=== PATIENT | female | born 1935 | race Caucasian/White ===

== ENCOUNTER 2017-03-30 17:57 | Emergency (ER) | payer MEDICARE ==
--- NOTE | 2017-03-30 19:56 | RAD ---
RIGHT KNEE 4 VIEWS: Date: 03/30/17 HISTORY: Pain. Fall. COMPARISON: None. 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 No joint effusion. No hardware complication. No acute fracture. IMPRESSION: No acute abnormality. POS: [facility]
[2017-03-30] MEDS ORDERED: Bacitracin Zinc 1 Packet ONE (20:51)
== END 2017-03-30 21:50 | disposition home or self-care (01) ==
LOC: ERS 17:57
DX: S81.011A Laceration without foreign body, right knee, initial encounter (principal); G47.00 Insomnia, unspecified; K21.9 Gastro-esophageal reflux disease without esophagitis; E78.5 Hyperlipidemia, unspecified; I10 Essential (primary) hypertension; M19.90 Unspecified osteoarthritis, unspecified site; W07.XXXA Fall from chair, initial encounter
CPT/HCPCS: 12004

== ENCOUNTER 2017-06-27 11:29 | Day surgery (SDC) | payer MEDICARE ==
--- NOTE | 2017-06-27 14:20 | OP ---
DATE OF PROCEDURE: 06/27/2017 TITLE OF PROCEDURE: Esophagogastroduodenoscopy with balloon dilation of esophageal stricture and bio psy. PREPROCEDURE DIAGNOSES: 1. Dysphagia. 2. Regurgitation. 3. Gastroesophageal reflux disease. 4. History of esophageal stricture, dilated one year ago. POSTPROCEDURE DIAGNOSES: 1. Exam to second portion of duodenum. 2. A 5 cm hiatal hernia from 29 cm to 34 cm. 3. Moderate esophageal stricture/stenosis at 29 cm from the incisors. 4. Few benign appearing gastric fundic polyps in the proximal body. 5. No gastric or duodenal ulcers. 6. Grossly normal appearing duodenum. 7. Status post 18 mm TTS balloon dilation of esophageal stricture. PROCEDURE IN DETAIL: Written informed consent was obtained. The patient was brought to the endoscop y suite. Total intravenous anesthesia was provided by Mr. Antonino Rodríguez CRNA. The patient was place d in the left lateral decubitus position. A bite block was inserted into the mouth. A Pentax video diagnostic gastroscope was introduced into the oral cavity and the esophagus was easily intubated. T he gastroscope was advanced under direct visualization to the second portion of the duodenum. Endosc opic findings revealed a 5 cm hiatal hernia located at 29 cm to 34 cm from the incisors. At 29 cm, m oderate luminal narrowing due to an esophageal stricture was encountered. The stricture was traverse d carefully with the endoscope even before dilation and the remainder of the exam was carried out. A few small sessile benign appearing polyps were noted in the proximal gastric body. Based on their s ize of 2-3 mm in diameter and appearance, these were gastric fundic polyps. No biopsies were obtaine d. The remainder of the stomach appeared normal. The retroflexed view of the stomach of the cardia demonstrated the hiatal hernia again. The duodenum from the bulb to the second portion was then exam ined and appeared grossly normal. Using a TTS balloon, the distal esophageal stricture was gradually dilated at all 3 stages of inflation pressure from 15 mm to 16.5 mm to 18 mm. Post-dilation, severa l small mucosal petechiae were noted, but there was no active bleeding or tear. Biopsies were obtain ed at the level of the stricture for histology. The esophagus and stomach were then decompressed as the endoscope was completely removed from the patient. She was transferred to the day stay surgery a [facility] for post-procedure monitoring. There were no immediate complications. RECOMMENDATIONS: 1. Await pathology results. 2. Ask the patient to call me in 1 week for pathology results. 3. Continue Nexium 40 mg daily. 4. For the next 2 to 3 days, would recommend liquids and soft foods only. 5. Follow up in GI clinic in 6 weeks. 6. Repeat EGD with dilation p.r.n.
[2017-06-27] MEDS ORDERED: Propofol 200 MG/20 ML VIAL ONE (16:01)
== END 2017-06-27 14:35 ==
LOC: SDC 11:29
PROVIDERS: ATTEND Internal Medicine Gastroenterology
PROC: 0D758ZZ Dilation of Esophagus, Via Natural or Artificial Opening Endoscopic (ICD-10-PCS; principal; 2017-06-27)
PROC: 0DB58ZX Excision of Esophagus, Via Natural or Artificial Opening Endoscopic, Diagnostic (ICD-10-PCS; 2017-06-27)
DX: R13.14 Dysphagia, pharyngoesophageal phase (principal); K21.0 Gastro-esophageal reflux disease with esophagitis; K31.7 Polyp of stomach and duodenum; K22.2 Esophageal obstruction; K44.9 Diaphragmatic hernia without obstruction or gangrene; M19.90 Unspecified osteoarthritis, unspecified site; Z79.891 Long term (current) use of opiate analgesic; Z79.899 Other long term (current) drug therapy; Z98.890 Other specified postprocedural states
CPT/HCPCS: 88305; 88312; 88313; J2704